=== PATIENT | male | born 1965 | race Caucasian/White ===

== ENCOUNTER 2020-07-31 13:08 | Outpatient (CLI) | payer SELFPAY ==
--- NOTE | 2020-07-31 13:30 | USCV_ITS ---
Erick Smith Age: 55 Gender: M : 1965 Exam Date: 07/31/2020 13:10 Ordering Phys: Abdirahman Mauro M.D ([email or web address]) Technologist: Exam Location: [facility] [place] Indication: claudication RIGHT LEFT Brachial 117.00 mmHg Brachial 129.00 mmHg Pressure (mmHg) Waveform Pressure (mmHg) Waveform 168.00 SILK SCREENER 173.00 146.00 DPA 154.00 1.30 Ankle/Brachial Index 1.34 100.00 Pre-Exercise Toe Pressure 87.00 0.78 Pre-Exercise Toe/Brachial Index 0.67 FINDINGS Normal resting ABIs bilaterally Normal resting TBI on the right side Slightly diminished resting TBI on the left side CONCLUSIONS 1. No significant arterial obstruction on the right side. 2. Possible mild distal arterial disease on the left side Dr Jayesh Fontaine MD FAC (Electronically Signed) Final Date: 01 August 2020 09:35 S
== END 2020-07-31 13:09 | disposition home or self-care (01) ==
LOC: RAD 13:16
PROVIDERS: PCP Family Medicine; Visit Provider Internal Medicine
DX: I73.9 Peripheral vascular disease, unspecified (principal)
CPT/HCPCS: 93922

== ENCOUNTER 2022-01-23 14:50 | Inpatient (IN) | payer MEDICAID, SELFPAY ==
[2022-01-23] VITALS (46 sets, daily range): BP systolic 101–135; BP diastolic 62–82; PULSE 78–105; RESP 15–26; TEMP 36.2–36.9; O2SAT 79–98; BMI 19.0
--- NOTE | 2022-01-23 16:18 | XRR_ITS ---
PROCEDURE INFORMATION: Exam: XR Chest Exam date and time: 01/23/2022 4:34 PM Age: 56 years old Clinical indication: Dyspnea TECHNIQUE: Imaging protocol: XR of the chest. Views: 1 view. COMPARISON: No relevant prior studies available. FINDINGS: Lungs: Unremarkable. No consolidation. Pleural spaces: Unremarkable. No pleural effusion. No pneumothorax. Heart/Mediastinum: Unremarkable. No cardiomegaly. Bones/joints: Unremarkable. XR/XR chest 1V portable [id number] IMPRESSION: No acute findings.
--- NOTE | 2022-01-23 16:18 | ECG_ITS ---
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 Measurements Intervals [place] Rate: 91 P: 70 SD: 196 QRS: 5 QRSD: 94 T: 79 QT: 350 QTc: 432 Interpretive Statements SINUS RHYTHM WITH OCCASIONAL SUPRAVENTRICULAR PREMATURE COMPLEXES SEPTAL MYOCARDIAL INFARCTION , PROBABLY OLD [40+ ms Q WAVE IN V1/V2] No previous ECG available for comparison Electronically Signed On 01-23-2022 23:29:02 CDT by Jayesh Fontaine M.D. [id number]
--- NOTE | 2022-01-23 16:39 | W.ED.GENADLT ---
HPI - General Adult General: Chief complaint: Shortness of Breath/Dyspnea Stated complaint: SOB X 1 WEEK Time Seen by Provider: 01/23/22 16:33 History of Present Illness: Patient a 56-year-old male with a history of recurrent pneumonia, smoking, HTN to the emergency room with dyspnea and cough for the last 5 days. Patient tells me that he has had increasing shortness of breath the last few days and thinks I may be coming down with a pneumonia. . Patient denies any productive sputum, fever/chills, but does report cough. Patient has intermittent chest pain has been going on for the last 2 years. Chest pain has not worsened over the last few days. Patient denies any diaphoresis, nausea/vomiting, bowel, his diarrhea melena/hematochezia, complaints. Patient refused report diffuse body aches. Onset:5 days ago Duration:5 days Location:home Severity:mild/moderate Associated symptoms: Deny chest pain, dyspnea, nausea, rash, palpitations or vomiting Review of Systems Const: Denies: fever(s) or chills Eyes: Denies: change in vision ENMT: Denies: mouth pain Card: Denies: chest pain or palpitations Resp: Denies: dyspnea or non-productive cough GI: Denies: abdominal pain, nausea, vomiting or diarrhea : Denies: dysuria Musc: Denies: extremity pain Skin/Breast: Denies: rash or new lesions Neuro: Denies: weakness in extremities Psych: Reports: other (Normal mood) Brendan/Lymph: Denies: easy bruising PFS ED PFSH: Medical History Claudication Hypertension Social History Smoking and tobacco status: current every day smoker Quit status (tobacco): has tried quititng Alcohol intake: current Alcohol intake frequency: 3 or more drinks per day Alcohol type: beer Desire information about alcohol rehabilitation?: No Last substance use date: 10/07/20 Lives independently: No Housing: Apartment Physical Exam Const: COMMON NORMALS: alert HENMT: COMMON NORMALS: atraumatic HEAD & SCALP: atraumatic MOUTH: moist mucous membranes not abnormal Eye: COMMON NORMALS: EOMs intact bilaterally and conjunctivae normal CONJUNCTIVA: Yes conjunctivae normal Neck/C-Spine: COMMON NORMALS: full ROM and supple Resp: COMMON NORMALS: normal respiratory effort and clear to auscultation bilaterally AUSCULTATION: clear to auscultation bilaterally Cardio: COMMON NORMALS: regular rate RATE: regular rate GI: COMMON NORMALS: Soft to palpation and non-tender PALPATION: Yes Soft to palpation Extremity: COMMON NORMALS: full ROM Neuro: SENSORIUM/ORIENTATION: Yes alert MOTOR EXAM: No Abnormal motor strength present and Other motor observations present (no focal motor deficits) Psych: COMMON NORMALS: speech normal SPEECH: Yes normal speech MOOD & AFFECT: Yes euthymic mood Course Vital Signs: Vital signs: Vital Signs Temperature 97.1 F L 01/23/22 15:04 Pulse Rate 103 H 01/23/22 15:04 Respiratory Rate 18 01/23/22 15:04 Blood Pressure 102/62 01/23/22 15:04 Pulse Oximetry 96 01/23/22 15:04 MDM - General Adult Medical Decision Making 56-year-old male with history hypertension presenting to the emergency room for evaluation of dyspnea and cough for last 5 days. X-ray chest clear. White count 12.9. Patient is found to have a sodium 117 without prior for comparison. It is unclear whether patient is chronically or acutely hyponatremic. Patient has no seizure-like activity or confusion in the emergency room. Patient received 2L of NS. Patient received maintenance NS today. Disposition: Admission Lab Data : 01/23/22 17:00 01/23/22 17:00 Radiology Impressions Chest X-Ray 01/23/22 16:18 IMPRESSION: No acute findings. Laboratory Results WBC 12.9 10^3/uL (4.0-10.0) H 01/23/22 17:00 RBC 4.49 10^6/uL (4.1-5.3) 01/23/22 17:00 Hgb 13.7 g/dL (11.7-16.6) 01/23/22 17:00 Hct 38.0 % (42.0-52.0) L 01/23/22 17:00 MCV 84.6 fl (80-94) 01/23/22 17:00 MCH 30.5 pg (28.0-34.0) 01/23/22 17:00 MCHC 36.1 g/dL (30.0-36.0) H 01/23/22 17:00 RDW 14.8 % (12.1-15.1) 01/23/22 17:00 Plt Count 249 10^3/cmm (130-400) 01/23/22 17:00 MPV 10.8 fL (7.4-10.4) H 01/23/22 17:00 Neut % (Auto) 74.2 % 01/23/22 17:00 Lymph % (Auto) 10.7 % 01/23/22 17:00 [place] % (Auto) 13.2 % 01/23/22 17:00 Eos % (Auto) 0.5 % 01/23/22 17:00 Baso % (Auto) 0.2 % 01/23/22 17:00 Neut # (Auto) 9.57 10^3/uL (1.8-7.7) H 01/23/22 17:00 Lymph # (Auto) 1.4 10^3/uL (0.8-4.8) 01/23/22 17:00 [place] # (Auto) 1.7 10^3/uL (0.2-0.9) H 01/23/22 17:00 Eos # (Auto) 0.1 10^3/uL (0.0-0.8) 01/23/22 17:00 Baso # (Auto) 0.0 10^3/uL (0.0-0.1) 01/23/22 17:00 Nucleated RBC % (auto) 0 % 01/23/22 17:00 Nucleated RBCs # 0.0 /100WBC 01/23/22 17:00 Sodium 117 mmol/L (136-145) L* 01/23/22 17:00 Potassium 4.3 mmol/L (3.5-5.1) 01/23/22 17:00 Chloride 76 mmol/L (98-107) L 01/23/22 17:00 Carbon Dioxide 25 mmol/L (22-29) 01/23/22 17:00 Anion Gap 20.3 (5-19) H 01/23/22 17:00 BUN 14 mg/dL (6-20) 01/23/22 17:00 Creatinine 1.0 mg/dL (0.7-1.2) 01/23/22 17:00 GFR Calculation 77.0 mL/min (90-130) L 01/23/22 17:00 Glucose 118 mg/dL (65-115) H 01/23/22 17:00 Calculated Osmolality 246 mOsm/kg (285-295) L 01/23/22 17:00 Calcium 8.8 mg/dL (8.5-10.5) 01/23/22 17:00 Troponin T Baseline 23 ng/L (0-15) H 01/23/22 17:00 Imaging Data Other Imaging: Radiologist's impression: [facility] [facility] [place] [address] XRay Report Signed Patient: Erick Smith Unit #: [id number] : 1965 Age/Sex: 56 / M ADM Date: 01/23/22 Loc: ER Room/Bed: Attending Dr: Ordering Provider/Ordering MD: Neel Boo MD Date of Service: 01/23/22 Procedure(s): XR chest 1V portable [id number] Accession Number(s): [id number] Report Number: [id number] PROCEDURE INFORMATION: Exam: XR Chest Exam date and time: 01/23/2022 4:34 PM Age: 56 years old Clinical indication: Dyspnea TECHNIQUE: Imaging protocol: XR of the chest. Views: 1 view. COMPARISON: No relevant prior studies available. FINDINGS: Lungs: Unremarkable. No consolidation. Pleural spaces: Unremarkable. No pleural effusion. No pneumothorax. Heart/Mediastinum: Unremarkable. No cardiomegaly. Bones/joints: Unremarkable. XR/XR chest 1V portable [id number] IMPRESSION: No acute findings. ? Dictated By: Philip Negrete Signed By: Philip Negrete Signed Date/Time: 01/23/22 1709 DD/ 1634 Discharge Plan Discharge Patient Disposition: Admitted As Inpatient Clinical Impression: Acute hyponatremia Condition: Stable Coding Level of Care Code ED Research Study Assistant for Chg Fwd Exam Comprehensive
[2022-01-23 17:18] LABS: Basophils % 0.2 %; Eosinophils # 0.1 10^3/uL (0.0-0.8); Eosinophils % 0.5 %; Hemoglobin 13.7 g/dL (11.7-16.6); Lymphocytes # 1.4 10^3/uL (0.8-4.8); Lymphocytes % 10.7 %; Mean Corpuscular HGB Conc 36.1 g/dL (30.0-36.0); Mean Corpuscular Hemoglobin 30.5 pg (28.0-34.0); Mean Corpuscular Volume 84.6 fl (80-94); Mean Platelet Volume 10.8 fL (7.4-10.4); Monocytes # 1.7 10^3/uL (0.2-0.9); Monocytes % 13.2 %; Neutrophils # 9.57 10^3/uL (1.8-7.7); Neutrophils % 74.2 %; Nucleated Red Blood Cells % 0 %; Platelet Count 249 10^3/cmm (130-400); Red Blood Count 4.49 10^6/uL (4.1-5.3); Red Cell Distribution Width 14.8 % (12.1-15.1); White Blood Count 12.9 10^3/uL (4.0-10.0)
[2022-01-23 17:37] LABS: Anion Gap 20.3 (5-19); Blood Urea Nitrogen 14 mg/dL (6-20); Calcium 8.8 mg/dL (8.5-10.5); Carbon Dioxide 25 mmol/L (22-29); Chloride 76 mmol/L (98-107); Glucose 118 mg/dL (65-115); Osmolality Calculated 246 mOsm/kg (285-295); Potassium 4.3 mmol/L (3.5-5.1)
[2022-01-23 17:41] LABS: Troponin(5th) Baseline 23 ng/L (0-15)
[2022-01-23 17:45] LABS: Sodium 117 mmol/L (136-145)
--- NOTE | 2022-01-23 18:18 | ECG_ITS ---
[facility] Test Date: 2022-01-23 Pat Name: Erick Smith Department: Room: ICU05 Gender: Male Wrap Turner: : 1965 Requested By: Neel Boo Order Number: [id number] Carl MD: Abdirahman Mauro M.D. Measurements Intervals [place] Rate: 89 P: 76 MI: 214 QRS: -17 QRSD: 97 T: 71 QT: 364 QTc: 444 Interpretive Statements SINUS RHYTHM WITH FIRST DEGREE AV BLOCK ANTEROSEPTAL MYOCARDIAL INFARCTION , PROBABLY OLD [40+ ms Q WAVE IN V1-V4] Compared to ECG 01/23/2022 17:03:14 First degree AV block now present Myocardial infarct finding still present Electronically Signed On 01-24-2022 18:15:34 CDT by Abdirahman Mauro M.D. [email or web address], [facility].[employer]/store/[id number]
[2022-01-23] MEDS: sodium chloride 0.9% 1,000 ML 999 ML IV (18:46)
[2022-01-23] MEDS: acetaminophen 500 mg Tablet PO (18:47)
--- NOTE | 2022-01-23 18:53 | PC.NURSE ---
Pt placed on continuous cardiac, BP, and SpO2 monitoring.
[2022-01-23 18:56] LABS: Adenovirus Not Detected (NOT DETECT); Chlamydia Pneumoniae Not Detected (NOT DETECT); Coronavirus 229E,HKU1,NL63,OC4 Not Detected (NOT DETECT); Human Metapneumovirus Not Detected (NOT DETECT); Human Rhinovirus/Enterovirus Not Detected (NOT DETECT); Influenza A Not Detected (NOT DETECT); Influenza A H1 Not Detected (NOT DETECT); Influenza A H1-2009 Not Detected (NOT DETECT); Influenza A H3 Not Detected (NOT DETECT); Influenza B Not Detected (NOT DETECT); Mycoplasma Pneumoniae Not Detected (NOT DETECT); Parainfluenza Virus Type 1 Not Detected (NOT DETECT); Parainfluenza Virus Type 2 Not Detected (NOT DETECT); Parainfluenza Virus Type 3 Not Detected (NOT DETECT); Parainfluenza Virus Type 4 Not Detected (NOT DETECT); Respiratory Syncytial Virus A Not Detected (NOT DETECT); Respiratory Syncytial Virus B Not Detected (NOT DETECT); SARS-COV-2 Not Detected (NOT DETECT)
--- NOTE | 2022-01-23 19:20 | P.HP_ITS ---
Providers/Chief Complaint Primary Care Provider: Sarah Beth Enamorado DO Chief Complaint: SOB X 1 WEEK History of Present Illness Erick Smith is a 56 year old male with past medical history of hypertension, chronic smoking 1/2 to 1 pack a day for long time, chronic alcohol abuse about 6 beers a day daily came in with chief complaint of Cough and shortness of breath for the last for 5 days, he is also having nausea and poor oral intake, headache, denies any vomiting, denies any fever chills, patient is also complaining of left-sided chest pain, which is reproducible. Upon arrival in the ER he was worked up for above-mentioned complaint: Imaging studies: X-ray chest: No infiltrates, no effusion no pneumothorax EKG: SINUS RHYTHM WITH OCCASIONAL SUPRAVENTRICULAR PREMATURE COMPLEXES Labs: WBC 12.9 , H&H: 13.7/38 , plt : 249 , serum sodium 117 , serum potassium 4.3 , BUN and serum creatinine: 14/1 Troponin trend : 23 Review of Systems General: Reports: 10 or more systems reviewed and unremarkable except in HPI and below Const: Denies: fever(s), chills, body aches or diaphoresis Card: Denies: palpitations, edema or swelling of feet/ankles Resp: Denies: wheezing GI: Denies: abdominal pain, vomiting, diarrhea or constipation : Denies: flank pain or difficulty urinating Musc: Denies: back pain, extremity pain or extremity swelling Neuro: Denies: headache(s), difficulty walking or confusion Medications/Allergies Home Medications Medication Instructions Recorded Confirmed Last Taken Type amlodipine 5 mg tablet 7.5 mg PO QAM 01/23/22 01/23/22 01/23/22 08:00 History aspirin 325 mg tablet 325 mg PO TID PRN 01/23/22 01/23/22 Unknown History hydrochlorothiazide 25 mg tablet 25 mg PO QAM 01/23/22 01/23/22 01/23/22 08:00 History lisinopril 40 mg tablet 40 mg PO QAM 01/23/22 01/23/22 01/23/22 08:00 History Allergies Allergy/AdvReac Type Severity Reaction Status Date / Time codeine Allergy Unknown Unknown Verified 01/23/22 16:42 PFSH Acute PFSH: Medical History Claudication Hypertension Social History Smoking and tobacco status: current every day smoker Quit status (tobacco): has tried quititng Alcohol intake: current Alcohol intake frequency: 3 or more drinks per day Alcohol type: beer Desire information about alcohol rehabilitation?: No Last substance use date: 10/07/20 Lives independently: No Housing: Apartment Vitals/I&O/Wt Last Vital Signs Temp 97.1 F L 01/23/22 15:04 Pulse 96 01/23/22 18:48 Resp 18 01/23/22 18:48 BP 135/77 01/23/22 18:48 Pulse Ox 98 01/23/22 18:48 Weight last 48 hrs Weight 63.503 kg Physical Exam Const: COMMON NORMALS: patient oriented x3 HENMT: COMMON NORMALS: normocephalic and atraumatic HEAD & SCALP: normocephalic and atraumatic Chest: CHEST: Yes Symmetrical chest wall rise Resp: COMMON NORMALS: normal respiratory effort, No retractions, No use of accessory muscles and clear to auscultation bilaterally EFFORT & INSPECTION: Yes symmetric chest movement AUSCULTATION: clear to auscultation bilaterally Cardio: COMMON NORMALS: regular rate, regular rhythm, S1 normal heart sound present, S2 normal heart sound present, No gallops present (Cardio), No murmurs present (Cardio), No rub (Cardio) and Peripheral pulses 2+ throughout RATE: regular rate RHYTHM: regular rhythm HEART SOUNDS: S1 normal heart sound present and S2 normal heart sound present PERIPHERAL PULSES: Peripheral pulses 2+ throughout GI: COMMON NORMALS: Normal to inspection, nondistended, normoactive bowel sounds present, Soft to palpation, non-tender, No hepatosplenomegaly present and no masses AUSCULTATION: Yes normoactive bowel sounds PALPATION: Yes Soft to palpation and Yes No hepatosplenomegaly present RECTAL EXAM: Yes deferred Extremity: COMMON NORMALS: no clubbing, cyanosis or edema and no pedal edema Neuro: COMMON NORMALS: patient oriented x3 Data : 01/23/22 17:00 01/23/22 17:00 A&P Assessment and plan (1) Hyponatremia: Status: Acute (2) Hypertension: Status: Acute Plan 56 year old male with past medical history of hypertension, chronic smoking 1/2 to 1 pack a day for long time, chronic alcohol abuse about 6 beers a day daily came in with chief complaint of Cough and shortness of breath for the last for 5 days, he is also having nausea and poor oral intake, headache. Assessment: #Hyponatremia: Admission serum sodium is 117 TSH Random urine sodium Urinalysis Urine osmolality Serum osmolality Monitor BMP every 4 hours Continue IV hydration with normal saline at 125 cc an hour #Hypertension Continue amlodipine Hold hydrochlorothiazide #Chronic alcohol abuse: Counseled regarding alcohol cessation On CIWA protocol #History of smoking Counseled We will offer nicotine patch #CODE STATUS: Full code #DVT prophylaxis: On Lovenox Attestations Medical Necessity Statement*: Patient needs to be in hospital for management of hyponatremia.Anticipated length of stay greater than 2 midnightS. Time Spent in Patient Care: Greater than 35 minutes (>than 50% of time spent in counselling and/or direct pt care on unit) . Coding Level of Care Code Acute Van Owner Operator for Bernard Nixon Diagnoses Hyponatremia E87.1 Hypertension I10
[2022-01-23 19:43] LABS: Troponin 5 2HR 17.82 ng/L (0-15)
[2022-01-23 19:45] LABS: Troponin 5 2HR Delta -5.18 ABS# (0-10)
[2022-01-23] MEDS: sodium chloride 0.9% 1,000 ML 125 ML IV (20:00)
[2022-01-23] MEDS: enoxaparin 40 mg/0.4 mL Syringe SUBCUT (21:19)
[2022-01-23 23:25] LABS: Troponin 5 6HR 16.32 ng/L (0-15)
[2022-01-23 23:29] LABS: Troponin 5 6HR Delta -6.68 ng/L (0-12)
[2022-01-24] VITALS (160 sets, daily range): BP systolic 100–143; BP diastolic 61–85; PULSE 78–110; RESP 12–32; TEMP 36.6–37.6; O2SAT 85–98
--- NOTE | 2022-01-24 01:26 | PC.NURSE ---
Pt. has debra period for 2-3 seconds. Pt. then begins to become very nauseated and tachycardic.
[2022-01-24] MEDS: ondansetron 2 mg/ML SDV 2 mL 4 MG IVP ×3 (01:34→17:16)
--- NOTE | 2022-01-24 01:40 | PC.NURSE ---
CAlled Dr. Dasilva and notified of patient status and of patient situation. To recieve orders.
--- NOTE | 2022-01-24 01:45 | ECG_ITS ---
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 Measurements Intervals [place] Rate: 98 P: 71 LA: 206 QRS: -17 QRSD: 93 T: 84 QT: 342 QTc: 438 Interpretive Statements SINUS RHYTHM WITH FREQUENT SUPRAVENTRICULAR PREMATURE COMPLEXES ANTEROSEPTAL MYOCARDIAL INFARCTION , OF INDETERMINATE AGE [40+ ms Q WAVE IN V1-V4] Compared to ECG 01/23/2022 21:09:51 First degree AV block no longer present Myocardial infarct finding still present Electronically Signed On 01-24-2022 18:10:43 CDT by Abdirahman Mauro M.D. [email or web address]/store/[id number]
[2022-01-24] MEDS: sodium chloride 0.9% 1,000 ML 125 ML IV (02:45)
--- NOTE | 2022-01-24 03:45 | ECG_ITS ---
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 Measurements Intervals [place] Rate: 95 P: 73 CO: 188 QRS: -7 QRSD: 95 T: 90 QT: 341 QTc: 429 Interpretive Statements SINUS RHYTHM WITH FREQUENT SUPRAVENTRICULAR PREMATURE COMPLEXES ANTEROSEPTAL MYOCARDIAL INFARCTION , OF INDETERMINATE AGE [40+ ms Q WAVE IN V1-V4] Compared to ECG 01/24/2022 02:03:18 No significant changes Electronically Signed On 01-24-2022 18:14:44 CDT by Abdirahman Mauro M.D. [id number]
[2022-01-24 05:14] LABS: Basophils % 0.4 %; Eosinophils % 0.1 %; Hematocrit 34.9 % (42.0-52.0); Hemoglobin 12.4 g/dL (11.7-16.6); Lymphocytes # 1.5 10^3/uL (0.8-4.8); Lymphocytes % 18.3 %; Mean Corpuscular HGB Conc 35.5 g/dL (30.0-36.0); Mean Corpuscular Volume 84.5 fl (80-94); Mean Platelet Volume 10.5 fL (7.4-10.4); Monocytes # 1.2 10^3/uL (0.2-0.9); Monocytes % 14.4 %; Neutrophils # 5.49 10^3/uL (1.8-7.7); Neutrophils % 66.2 %; Nucleated Red Blood Cells % 0 %; Platelet Count 253 10^3/cmm (130-400); Red Blood Count 4.13 10^6/uL (4.1-5.3); Red Cell Distribution Width 14.6 % (12.1-15.1); White Blood Count 8.3 10^3/uL (4.0-10.0)
[2022-01-24 05:39] LABS: Alanine Aminotransferase 11 U/L (0-41); Albumin Level 3.3 g/dL (3.5-5.2); Alkaline Phosphatase 66 IU/L (40-130); Aspartate Amino Transferase 20 U/L (0-40); Blood Urea Nitrogen 13 mg/dL (6-20); Calcium 8.4 mg/dL (8.5-10.5); Carbon Dioxide 21 mmol/L (22-29); Chloride 81 mmol/L (98-107); Glomerular Filtration Rate 116.2 mL/min (90-130); Glucose 111 mg/dL (65-115); Magnesium 1.3 mg/dL (1.7-2.3); Osmolality Calculated 243 mOsm/kg (285-295); Total Bilirubin 0.6 mg/dL (0.15-1.2); Total Protein 6.3 g/dL (6.6-8.7)
[2022-01-24 05:44] LABS: Troponin(5th) Baseline 20 ng/L (0-15)
[2022-01-24 06:20] LABS: Sodium 116 mmol/L (136-145)
--- NOTE | 2022-01-24 07:45 | ECG_ITS ---
[facility] Test Date: 2022-01-24 Pat Name: Erick Smith Department: Room: [facility]05 Gender: Male Supervisor Boarding: : 1965 Requested By: Whit Dasilva Order Number: [id number] Meseret MD: Abdirahman Mauro M.D. Measurements Intervals [place] Rate: 96 P: 75 AR: 194 QRS: -24 QRSD: 96 T: 87 QT: 344 QTc: 435 Interpretive Statements SINUS RHYTHM WITH OCCASIONAL SUPRAVENTRICULAR PREMATURE COMPLEXES ANTEROSEPTAL MYOCARDIAL INFARCTION , PROBABLY OLD [40+ ms Q WAVE IN V1-V4] Compared to ECG 01/24/2022 04:28:30 No significant changes Electronically Signed On 01-24-2022 18:13:50 CDT by Abdirahman Mauro M.D. [email or web address].[employer]/store/[id number]
[2022-01-24 08:06] LABS: Troponin 5 2HR 19.28 ng/L (0-15); Troponin 5 2HR Delta -0.72 ABS# (0-10)
[2022-01-24] MEDS: thiamine 100 mg Tablet PO (08:09)
[2022-01-24] MEDS: multivitamin therapeutic Tablet 1 TAB PO (08:09)
[2022-01-24] MEDS: folic acid 1 mg Tablet PO (08:09)
[2022-01-24] MEDS: sodium chloride 1 gm Tablet 2 GM PO ×2 (10:05→17:20)
[2022-01-24] MEDS: lidocaine 5% Patch 1 PATCH TOPICAL ×2 (10:06→19:41)
--- NOTE | 2022-01-24 10:18 | ECG_ITS ---
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 Measurements Intervals [place] Rate: 93 P: [place]: QRS: -51 QRSD: 96 T: 90 QT: 349 QTc: 436 Interpretive Statements SINUS RHYTHM WITH SUPRAVENTRICULAR PREMATURE COMPLEXES LEFT ANTERIOR FASCICULAR BLOCK [QRS AXIS <= -45, QR IN I, RS IN II] ANTEROSEPTAL MYOCARDIAL INFARCTION , PROBABLY OLD [40+ ms Q WAVE IN V1-V4] Compared to ECG 01/24/2022 08:35:59 Left anterior fascicular block now present Myocardial infarct finding still present Electronically Signed On 01-24-2022 18:09:14 CDT by Abdirahman Mauro M.D. [email or web address] [facility].[employer]/store/[id number]
--- NOTE | 2022-01-24 10:21 | USCV_ITS ---
Erick Smith Age: 56 Gender: M : 1965 Exam Date: 01/24/2022 10:51 Ordering Phys: Clif Whitaker MD Technologist: Joe Hawk Exam Location: [facility] [place] Indication: tansient asystole BP: 110 / 72 HR: 135 Rhythm: Other Technical Quality: Adequate MEASUREMENTS (Male / Female) Normal Values 2D ECHO LV Diastolic Diameter PLAX 4.7 cm 4.2 - 5.9 / 3.9 - 5.3 cm LV Systolic Diameter PLAX 3.2 cm IVS Diastolic Thickness 0.9 cm 0.6 - 1.0 / 0.6 - 0.9 cm IVS Systolic Thickness 1.0 cm LVPW Diastolic Thickness 1.1 cm 0.6 - 1.0 / 0.6 - 0.9 cm LVPW Systolic Thickness 1.3 cm LVOT Diameter 2.0 cm LV Ejection Fraction 2D Teich 60.3 % LV Ejection Fraction MOD 2C 66.4 % LV Ejection Fraction 2C AL 66.7 % LA Diameter 3.1 cm LA Width 3.2 cm LA Height 3.9 cm RA Width 3.3 cm RA Height 3.3 cm Aorta at Sinotubular Diameter 3.0 cm M-MODE Aortic Annulus Diameter 3.3 cm LA Ao Ratio MM 0.9 MV E Point Septal Separation 0.3 cm DOPPLER AV Peak Velocity 143.0 cm/s LVOT Peak Velocity 136.0 cm/s AV Area Cont Eq vti 2.6 cm squared AV Area Cont Eq pk 3.0 cm squared MV Area PHT 5.1 cm squared Mitral E to A Ratio 0.7 MV E' Velocity 35.0 cm/s Mitral E to LV E' Lateral Ratio 5.8 TR Peak Velocity 341.0 cm/s TR Peak Gradient 46.5 mmHg TR Mean Velocity 179.8 cm/s TR Mean Gradient 13.8 mmHg TR Velocity Time Integral 55.4 cm Right Atrial Pressure 3.0 mmHg Pulmonary Artery Systolic Pressu 49.5 mmHg RV Acceleration Time 0.1 s RV Ejection Time 0.3 s RV AcT/ET 0.5 FINDINGS Left Ventricle Normal left ventricular size and systolic function, EF 63 %. No regional wall motion abnormalities. Grade I/IV diastolic dysfunction (abnormal relaxation filling pattern), normal to mildly elevated filling pressures. Mild left ventricular hypertrophy. Right Ventricle The right ventricle is normal in size and function. Right Atrium The right atrium is normal in size. Left Atrium The left atrium is normal in size. Mitral Valve Thickened mitral valve. Moderate mitral annular calcification. Trace mitral valve regurgitation. Aortic Valve Trace aortic valve regurgitation. Tricuspid Valve Trace tricuspid valve regurgitation. Pulmonic Valve Structurally normal pulmonic valve without significant stenosis. There is no pulmonic regurgitation. Pericardium Normal pericardium without effusion. Aorta Mildly dilated aortic root, measuring 3.9 cm at the level of the sinuses CONCLUSIONS Normal left ventricular size and systolic function, EF 63 %. No regional wall motion abnormalities. Grade I/IV diastolic dysfunction (abnormal relaxation filling pattern), normal to mildly elevated filling pressures. Mild left ventricular hypertrophy. Thickened mitral valve. Moderate mitral annular calcification. Trace mitral valve regurgitation. Trace of aortic, mitral and tricuspid regurgitation. There is no pericardial effusion. There are no intracardiac masses. No previous study is available for comparison. No similar previous studies are available for comparison Dr Jayesh Fontaine MD FAC (Electronically Signed) Final Date: 24 January 2022 23:48 S
[2022-01-24 11:02] LABS: Anion Gap 15.7 (5-19); Blood Urea Nitrogen 14 mg/dL (6-20); Calcium 8.5 mg/dL (8.5-10.5); Carbon Dioxide 22 mmol/L (22-29); Chloride 83 mmol/L (98-107); Glomerular Filtration Rate 99.6 mL/min (90-130); Glucose 102 mg/dL (65-115); Osmolality Calculated 245 mOsm/kg (285-295); Potassium 3.7 mmol/L (3.5-5.1)
[2022-01-24] MEDS: magnesium sulfate premix 4 GM/100 ML PREMIX IV (11:03)
[2022-01-24 11:06] LABS: Sodium 117 mmol/L (136-145)
[2022-01-24 11:22] LABS: Troponin 5 6HR 19.91 ng/L (0-15)
[2022-01-24 11:28] LABS: Troponin 5 6HR Delta -0.09 ng/L (0-12)
--- NOTE | 2022-01-24 12:21 | PM.PN ---
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 Patient was also having significant sinus pauses on telemetry monitoring, likely secondary to electrolyte abnormalities Twelve-lead EKG has shown sinus rhythm with PACs, electrolyte abnormality correction is being done. Medications: Medication Review Details: Generic Name Dose Route Start Last Admin Trade Name Fresue PRN Reason Stop Dose Admin Enoxaparin Sodium 40 mg 01/23/22 19:30 01/23/22 21:19 Enoxaparin 40 Mg /0.4 Ml Syringe SUBCUT 40 mg Q24H TAE Administration Folic Acid 1 mg 01/24/22 09:00 01/24/22 08:09 Folic Acid 1 Mg Tablet PO 1 mg DAILY TAE Administration Magnesium Sulfate 4 gm in 100 mls @ 50 mls/hr 01/24/22 10:45 01/24/22 11:03 Magnesium Sulfat e Premix IV 01/24/22 12:44 50 mls/hr ONCE ONE Administration Lidocaine 1 patch 01/24/22 09:44 01/24/22 10:06 Lidocaine 5% Pat ch TOPICAL 1 patch [id number] TAE Administration Multivitamins Ther apeutic 1 tab 01/24/22 09:00 01/24/22 08:09 Multivitamin The rapeutic Tablet PO 1 tab DAILY TAE Administration Ondansetron HCl 4 mg 01/23/22 19:14 01/24/22 09:48 Ondansetron 2 Mg /Ml Sdv 2 Ml IVP 4 mg Q8H PRN Administration vomiting, or N/V if npo Sodium Chloride 2 gm 01/24/22 09:43 01/24/22 10:05 Sodium Chloride 1 Gm Tablet PO 2 gm BID TAE Administration Thiamine Mononitra te 100 mg 01/24/22 09:00 01/24/22 08:09 Thiamine 100 Mg Tablet PO 100 mg DAILY TAE Administration Vitals/I&O/Wt Last Vital Signs Temp 97.8 F 01/24/22 03:20 Pulse 78 01/24/22 06:00 Resp 24 H 01/24/22 04:15 BP 126/77 01/24/22 04:15 Pulse Ox 93 01/24/22 04:15 01/23/22 01/24/22 01/24/22 22:59 06:59 14:59 Intake Total 1000 / 1000 843.75 / 1843.75 Output Total 200 / 200 1475 / 1675 575 / 575 Balance 800 / 800 -631.25 / 168.75 -575 / -575 Weight last 48 hrs Weight 63.503 kg Physical Exam Const: COMMON NORMALS: patient oriented x3 HENMT: COMMON NORMALS: normocephalic and atraumatic HEAD & SCALP: normocephalic and atraumatic Chest: CHEST: Yes Symmetrical chest wall rise OTHER: Left lower rib cage reproducible chest pain Resp: COMMON NORMALS: normal respiratory effort, No retractions, No use of accessory muscles and clear to auscultation bilaterally EFFORT & INSPECTION: Yes symmetric chest movement AUSCULTATION: clear to auscultation bilaterally Cardio: COMMON NORMALS: regular rate, regular rhythm, S1 normal heart sound present, S2 normal heart sound present, No gallops present (Cardio), No murmurs present (Cardio), No rub (Cardio) and Peripheral pulses 2+ throughout RATE: regular rate RHYTHM: regular rhythm HEART SOUNDS: S1 normal heart sound present and S2 normal heart sound present PERIPHERAL PULSES: Peripheral pulses 2+ throughout GI: COMMON NORMALS: Normal to inspection, nondistended, normoactive bowel sounds present, Soft to palpation, non-tender, No hepatosplenomegaly present and no masses AUSCULTATION: Yes normoactive bowel sounds PALPATION: Yes Soft to palpation and Yes No hepatosplenomegaly present RECTAL EXAM: Yes deferred Extremity: COMMON NORMALS: no clubbing, cyanosis or edema and no pedal edema Neuro: COMMON NORMALS: patient oriented x3 Data : 01/24/22 04:46 01/24/22 10:20 A&P Assessment and plan (1) Hyponatremia: Status: Acute (2) Hypertension: Status: Acute Plan 56 year old male with past medical history of hypertension, chronic smoking 1/2 to 1 pack a day for long time, chronic alcohol abuse about 6 beers a day daily came in with chief complaint of Cough and shortness of breath for the last for 5 days, he is also having nausea and poor oral intake, headache. Assessment: #Euvolemic Hyponatremia: Possible beer proteinemia, possible SIADH secondary to significant chest pain, Patient is also on hydrochlorothiazide at home which has been stopped Admission serum sodium is 117 TSH Cortisol Lipid Panel Random urine sodium Urinalysis Urine osmolality Serum osmolality Monitor BMP every 4 hours Was on IV hydration with normal saline at 125 cc an hour with drop in serum sodium to 116. Will Dc I. V fluid. Salts tablets Possibly 3 % Normal saline Correct Hypomagnesemia #Significant Sinus Pauses : Patient was also having significant sinus pauses 2 episodes up to 5 seconds on telemetry monitoring, likely secondary to electrolyte abnormalities. Twelve-lead EKG has shown sinus rhythm with PACs, electrolyte abnormality correction is being done. Continue telemetry monitoring #Lt Sided chest pain: Significant left-sided chest pain which is reproducible. EKG is failed to show any acute ST-T wave changes Troponin trend is without any significant delta 2D echo: Lidocaine patch Toradol as needed Currently we will continue to monitor If needed will do CT chest #Hypomagnesemia : Monitor and replace serum magnesium #Hypertension Continue amlodipine Hold hydrochlorothiazide #Chronic alcohol abuse: Counseled regarding alcohol cessation On CIWA protocol #History of smoking Counseled We will offer nicotine patch #CODE STATUS: Full code #DVT prophylaxis: On Lovenox Attestations Medical Necessity Statement*: Still in hospital for management of hyponatremia Critical Care Time: The high probability of a clinically significant, sudden or life threatening deterioration of the patient's [] system(s) required my full and direct attention, intervention and personal management. The critical care time is as shown. This time is in addition to time spent performing any reported procedures but includes the following: [x] Data and vital sign review and interpretation [x] Patient assessment, examination and intervention [x] Documentation [x] Medication orders and management Critical Care Time (min): 35 Coding Level of Care Code Acute Clinic Nurse for [facility] Fwd Exam Detailed Diagnoses Hyponatremia E87.1 Hypertension I10
--- NOTE | 2022-01-24 12:40 | PC.NURSE ---
At 1012, patient went into asystole for 10 seconds and lost consciousness. When nurses entered room, he regained conciousness and started vomiting. Patient quickly returned to baseline. Nurse alerted Dr ca, who ordered stat 12 lead and echocardiogram, and magnesium. Instructed to continue to monitor.
[2022-01-24] MEDS: FUROsemide 10 mg/mL SDV 2mL 20 MG IVP (13:04)
[2022-01-24 17:29] LABS: Add Urine Microscopic? NO; Charge for UA Resulting for Rev
[2022-01-24 17:32] LABS: Bilirubin Urine Neg (Negative); Blood Urine Neg (Negative); Glucose Urine UA Norm (Normal); Ketones Urine Negative (Negative); Leukocyte Esterase Urine Negative (Negative); Nitrate Urine Negative (Negative); Protein Urine Neg (Negative); Specific Gravity, Urine 1.005 (1.005-1.030); Urine Appearance Clear (CLEAR); Urine Color Yellow (Yellow); Urobilinogen Urine Norm (Negative); pH Urine 6.5 (5-7)
[2022-01-24 18:03] LABS: Anion Gap 15.6 (5-19); Blood Urea Nitrogen 13 mg/dL (6-20); Calcium 8.5 mg/dL (8.5-10.5); Carbon Dioxide 23 mmol/L (22-29); Chloride 81 mmol/L (98-107); Glomerular Filtration Rate 116.2 mL/min (90-130); Glucose 121 mg/dL (65-115); Magnesium 2.2 mg/dL (1.7-2.3); Osmolality Calculated 243 mOsm/kg (285-295); Potassium 3.6 mmol/L (3.5-5.1)
[2022-01-24 18:11] LABS: Sodium 116 mmol/L (136-145)
[2022-01-24] MEDS: morphine 4 mg/mL SDV 1 mL 1 MG IVP (18:36)
--- NOTE | 2022-01-24 19:06 | PM.CONSULT ---
Providers/Reason For Consult Consulting Physician/Specialty*: dawit roman md/ telenephrology Reason for Consult*: hyponatremia Requesting Physician: Dr Rosendo Whitaker Attending Physician: Clif Whitaker MD Primary Care Provider: Sarah Beth Enamorado DO History of Present Illness History of Present Illness Erick Smith is a 56 year old male h/o etoh use and htn. pt admitted w/ chest/ rib pain. pt was found to hve hyponatremia- did not improve w/ ns and renl called to consult. Review of Systems Narrative: weak, confused, nausea, thirty, chest discomfort. Medications/Allergies Home Medications Medication Instructions Recorded Confirmed Last Taken Type aspirin 325 mg tablet 325 mg PO TID PRN 01/23/22 01/23/22 Unknown History hydrochlorothiazide 25 mg tablet 25 mg PO QAM 01/23/22 01/23/22 01/23/22 08:00 History lisinopril 40 mg tablet 40 mg PO QAM 01/23/22 01/23/22 01/23/22 08:00 History amlodipine 5 mg tablet 7.5 mg PO QAM #135 tab 01/24/22 Unknown Rx Allergies Allergy/AdvReac Type Severity Reaction Status Date / Time codeine Allergy Unknown Unknown Verified 01/23/22 16:42 Current Medications Generic Name Dose Route Start Last Admin Trade Name Freq PRN Reason Stop Dose Admin Enoxaparin Sodium 40 mg 01/23/22 19:30 01/23/22 21:19 Enoxaparin 40 Mg/0.4 Ml Syringe SUBCUT 40 mg Q24H TAE Administration Folic Acid 1 mg 01/24/22 09:00 01/24/22 08:09 Folic Acid 1 Mg Tablet PO 1 mg DAILY TAE Administration Lidocaine 1 patch 01/24/22 09:44 01/24/22 10:06 Lidocaine 5% Patch TOPICAL 1 patch [id number] TAE Administration Multivitamins Therapeutic 1 tab 01/24/22 09:00 01/24/22 08:09 Multivitamin Therapeutic Tablet PO 1 tab DAILY TAE Administration Ondansetron HCl 4 mg 01/23/22 19:14 01/24/22 17:16 Ondansetron 2 Mg/Ml Sdv 2 Ml IVP 4 mg Q8H PRN Administration vomiting, or N/V if npo Thiamine Mononitrate 100 mg 01/24/22 09:00 01/24/22 08:09 Thiamine 100 Mg Tablet PO 100 mg DAILY ATE Administration PFSH Acute PFSH: Medical History Claudication Hypertension Social History Smoking and tobacco status: current every day smoker Quit status (tobacco): has tried quititng Alcohol intake: current Alcohol intake frequency: 3 or more drinks per day Alcohol type: beer Desire information about alcohol rehabilitation?: No Last substance use date: 10/07/20 Lives independently: No Housing: Apartment Vitals/I&O/Wt Last Vital Signs Temp 99.6 F 01/24/22 08:35 Pulse 87 01/24/22 14:00 Resp 24 H 01/24/22 18:36 BP 113/67 01/24/22 12:40 Pulse Ox 93 01/24/22 18:36 01/24/22 01/24/22 01/24/22 06:59 14:59 22:59 Intake Total 843.75 / 1843.75 800 / 800 Output Total 1475 / 1675 575 / 575 475 / 1050 Balance -631.25 / 168.75 -575 / -575 325 / -250 Weight last 48 hrs Weight 63.503 kg Physical Exam Narrative: NARD vss heent- nc/at, eomi neck supple lungs clear heart reg, no rub abd soft, nt, nd, + bs ext no edema neuro- a,a, o x 2 Data : 01/24/22 04:46 01/24/22 17:28 A&P Assessment and plan (1) Hyponatremia: s below Status: Acute Plan 56 yr old man etoh use, tob use, lots of fluids, poor diet and euvolemic hyponatremia 1. hyponatremi- likely from hctz nd etoh use w/ water intake recs- check tsh, am cortisol ur na, osm, cr fluid restrict give ns- monitor ms -if serum na does not improve then consider hypertonic ivf will check labs q 4-6 hrs seen and examined w/ RN- telehealth visit time spent 50 min Consult Attestations Medical Necessity Statement: AMS, hyponatremia Time Spent in Patient Care: Greater than 35 minutes (>than 50% of time spent in counselling and/or direct pt care on unit). Coding Level of Care Code Acute Marketing Database Consultant for [facility] Fwd Diagnoses Hyponatremia E87.1
--- NOTE | 2022-01-24 19:35 | PC.NURSE ---
at 1735, patient has another bout of asystole for 10 seconds followed by vomitting and regaining consciousness. Patient recovers immediately. NUrse alerted Dr ca. Receied orders for magnesium.
--- NOTE | 2022-01-24 19:40 | PC.NURSE ---
Shift Summary: DUring day shift, patient had 2 episodes of asystole followed by vomiting. Due to vomiting patient was unable to keep down any sodium supplements and sodium levels dropped form 117 to 116 by end of shift.
[2022-01-24] MEDS: enoxaparin 40 mg/0.4 mL Syringe SUBCUT (20:21)
[2022-01-24] MEDS: magnesium sulfate premix 2 GM/50 ML PIGGYBACK IV (20:22)
[2022-01-24 20:43] LABS: Blood Urea Nitrogen 13 mg/dL (6-20); Calcium 8.3 mg/dL (8.5-10.5); Carbon Dioxide 24 mmol/L (22-29); Chloride 80 mmol/L (98-107); Glomerular Filtration Rate 116.2 mL/min (90-130); Glucose 146 mg/dL (65-115); Osmolality Calculated 245 mOsm/kg (285-295); Uric Acid 5.1 mg/dL (3.4-7.0)
[2022-01-24 20:51] LABS: Anion Gap 15.7 (5-19); Potassium 3.7 mmol/L (3.5-5.1)
[2022-01-24 20:52] LABS: Sodium 116 mmol/L (136-145)
[2022-01-24 21:07] LABS: Potassium, Radom Urine 29 mmol/L; Urine Creatinine 86 mg/dL (39-259); Urine Random Chloride 46 mmol/L; Urine Random Sodium 45 mmol/L
[2022-01-24 21:15] LABS: Bilirubin Urine Neg (Negative); Blood Urine 1+ (Negative); Glucose Urine UA Norm (Normal); Ketones Urine Negative (Negative); Leukocyte Esterase Urine Negative (Negative); Nitrate Urine Negative (Negative); Protein Urine Neg (Negative); RBC Urine 0-4 /hpf (0-2); Urine Appearance Clear (CLEAR); Urine Color Yellow (Yellow); Urobilinogen Urine 1 mg/dL (Negative); WBC Urine 0-4 /hpf (0-5); pH Urine 6 (5-7)
[2022-01-24 21:16] LABS: Add Urine Culture? No; Bacteria Urine TRACE /hpf; Squamous Epithelial Cell Urine 0-4 /hpf (0-5)
[2022-01-24] MEDS: sodium chloride 0.9% 1,000 ML 100 ML IV (21:30)
[2022-01-24] MEDS: sodium chloride 3% 500 ML 30 ML IV (22:28)
[2022-01-25] VITALS (9 sets, daily range): BP systolic 110–116; BP diastolic 70–90; PULSE 80–100; RESP 14–24; TEMP 37.1–37.3; O2SAT 90–97
[2022-01-25 01:03] LABS: Anion Gap 13.2 (5-19); Blood Urea Nitrogen 11 mg/dL (6-20); Calcium 6.7 mg/dL (8.5-10.5); Carbon Dioxide 23 mmol/L (22-29); Chloride 93 mmol/L (98-107); Glomerular Filtration Rate 138.9 mL/min (90-130); Glucose 111 mg/dL (65-115); Osmolality Calculated 262 mOsm/kg (285-295); Potassium 3.2 mmol/L (3.5-5.1); Sodium 126 mmol/L (136-145)
[2022-01-25] MEDS: dextrose 5% 1,000 ML 100 ML IV (01:52)
[2022-01-25 04:23] LABS: Alanine Aminotransferase 10 U/L (0-41); Albumin Level 3.1 g/dL (3.5-5.2); Alkaline Phosphatase 64 IU/L (40-130); Anion Gap 13.5 (5-19); Aspartate Amino Transferase 14 U/L (0-40); Blood Urea Nitrogen 11 mg/dL (6-20); Calcium 8.3 mg/dL (8.5-10.5); Carbon Dioxide 26 mmol/L (22-29); Chloride 84 mmol/L (98-107); Globulin 3.7 g/dL (1.3-4.6); Glomerular Filtration Rate 116.2 mL/min (90-130); Glucose 122 mg/dL (65-115); Magnesium 2.1 mg/dL (1.7-2.3); Osmolality Calculated 251 mOsm/kg (285-295); Potassium 3.5 mmol/L (3.5-5.1); Sodium 120 mmol/L (136-145); Total Bilirubin 0.4 mg/dL (0.15-1.2); Total Protein 6.8 g/dL (6.6-8.7)
[2022-01-25 04:30] LABS: Thyroid Stimulating Hormone 0.84 uIU/mL (0.27-4.20)
[2022-01-25 04:34] LABS: Cortisol Random 7.61 ug/dL (2.47-19.5)
[2022-01-25] MEDS: multivitamin therapeutic Tablet 1 TAB PO (09:09)
[2022-01-25] MEDS: magnesium lactate 84 mg Tablet PO (09:10)
[2022-01-25] MEDS: pantoprazole DR 40 mg Tablet PO (09:10)
[2022-01-25] MEDS: thiamine 100 mg Tablet PO (09:11)
[2022-01-25] MEDS: folic acid 1 mg Tablet PO (09:11)
--- NOTE | 2022-01-25 10:50 | PC.CHAP ---
Pastoral Care Encounter/Spiritual Assessment Type of Contact [] Declined radio engineering teacher visit [] Patient/Family/Request visit [] Outpatient visit [] Follow-up visit [] Physician referral [] Code/Alert [x] Routine visit [] Staff referral [] Actively dying [] Patient sleeping [] Family support [] [] Out of room [] Palliative care [] [] Receiving care in room [] Pre-surgical visit [] Trauma [] Long length of stay [x] ICU visit [] Other: Relational/Emotional Strength [] Patient feels connected with others/family/visitors/staff [] Distress [] Loneliness/isolation [] Abandonment Spirituality of Patient [] Person of Zenaida [] Attends Spiritism of their Zenaida [] Believes in Prayer [] Reads Bible or Latter Day materials [] There are Spiritual issues to be addressed Hand Kiss Setter Interventions [x] Prayer [] Active listening [] Non-anxious presence [] Spiritual/emotional support [] Crisis/trauma care [] Spiritual counseling [] Bereavement support [] Provided bereavement packet [] Provided Bible/devotional materials [] Provided toy/stuffed animal, coloring book to patient or family member [] Provided Communion [] Anointing/[place] [] Salvation [x] Completed spiritual assessment [] Other: Impact on Illness or Injury [] Angry [] Fearful [] Anxious [] Often cries [] Exhaustion [] Unable to work [] Unable to attend adventist [] Unable to walk/stand [] Unable to read [] Unable to drive [] Unable to eat/drink [] Unable to sleep [] Unable to be with family [] Patient intubated [] Other: Summary Time spent with patient
--- NOTE | 2022-01-25 11:02 | PC.NURSE ---
Pt leaving AMA Pt requested to leave AMA. Pt had already told this nurse and the phys. this morning with rounds that he had no intentions of staying today. director student union responded to pt's call light. This nurse went into the room also and the pt was telling the skilled nursing case manager that he was ready to leave. This nurse asked the pt what could happen if he were to leave without phys consent. Pt verbalized he knew it was a high risk and he could if left. Pt was disconnected from all lines and monitoring. director student union discontinued IV and pt dressed himself. Pt signed AMA form and again was educated on the risk of leaving without phys consent. Pt walked to main entrance by skilled nursing case manager.
--- NOTE | 2022-01-25 11:10 | PC.NURSE ---
Physician notified Physician notified of pt leaving AMA.
[2022-01-28 16:12] LABS: Osmolality Serum 245 mOsm/kg (278-305)
--- NOTE | 2022-01-30 12:19 | W.PM.EVENTAC ---
Event Note Event Note: 56 year old male with past medical history of hypertension, chronic smoking 1/2 to 1 pack a day for long time, chronic alcohol abuse about 6 beers a day daily came in with chief complaint of Cough and shortness of breath for the last for 5 days, he is also having nausea and poor oral intake, headache, he was admitted for the management of Ac hyponatremia, likely 2/2 to alcohol use , Possible beer proteinemia he was kept on I.V hydration with normal saline and later switched to 3% normal saline, with improvement in serum sodium, during the hospital saty he was also having significant sinus pauses upto 6 secs likely 2/2 to significant elctrolytes derailment,hyponatremia,hypomagnesemia. While patient was continued to be managed for all his problems, he decided to sign AMA, he was extensively counselled regarding the risk of leaving hospital with all these active medical issues,unfortunately he persisted with his wish and left AMA.
== END 2022-01-25 11:11 | disposition left against medical advice (07) | DRG 641 ==
LOC: ER 18:25 → ICU 01-24 05:41
PROVIDERS: Internal Medicine; Internal Medicine Nephrology; Admitting Provider Internal Medicine; Emergency Provider Emergency Medicine; PCP Family Medicine; Visit Provider Internal Medicine
DX: E87.1 Hypo-osmolality and hyponatremia (principal); Z53.29 Procedure and treatment not carried out because of patient's decision for other reasons; I10 Essential (primary) hypertension; F17.210 Nicotine dependence, cigarettes, uncomplicated; F10.10 Alcohol abuse, uncomplicated; K29.20 Alcoholic gastritis without bleeding; E83.42 Hypomagnesemia; Z87.01 Personal history of pneumonia (recurrent); I45.5 Other specified heart block; R07.89 Other chest pain
CPT/HCPCS: 36415; 71045; 80048; 80053; 81001; 81003; 82436; 82533; 82570; 83735; 83930; 84133; 84300; 84443; 84484; 84550; 85025; 87486; 87581; 87633; 93005; 93306; 96361; 96372; 96374; 99285; J1650; J1940; J2270; J2405; J3411; J3475; J7030; J7131; Q3014